=== PATIENT | male | born 1975 | race Two or more races ===

== ENCOUNTER 2016-09-05 07:04 | Day surgery (SDC) | payer MEDICAID ==
[~2016-09-05 07:04] MED LIST: ASPIRIN EC81 MG PO; FERRIC CITRATE210 MG PO; HYDRALAZINE HCL25 M1 PO; ISOSORBIDE MONO30 M4 PO; NICODERM CQ1 EAC2 TD; NORCO 5/325 TAB1 TAB PO; PREDNISONE10 MG PO; TOPROL XL50 M1 PO; [UNRECOGNIZED DRUG - REMARK]
[2016-09-05] MEDS ORDERED: ISONIAZID300 M1 PO (08:01)
[2016-10-02] MEDS ORDERED: SYNTHROID75 MC1 PO (11:52)
[2016-10-02] MEDS ORDERED: TOPROL XL25 M1 PO (11:52)
[2016-10-02] MEDS ORDERED: FERRIC CITRATE210 MG PO (11:53)
[2016-10-02] MEDS ORDERED: VITAMIN D250000 UNI1 PO (11:58)
[2016-10-02] MEDS ORDERED: TYLENOL EXTRA500 M1 PO (11:59)
[2016-10-02] MEDS ORDERED: [UNRECOGNIZED DRUG - REMARK] (11:59)
[2017-01-30] MEDS ORDERED: AURYXIA PO (11:54)
[2017-01-30] MEDS ORDERED: FERRLECIT62.5 MG/5 IV (11:55)
[2017-01-30] MEDS ORDERED: ARANESP200 MCG/1 IV (11:55)
== END 2016-09-05 11:00 ==
LOC: RADSP 07:04 → SHSA 07:06
PROC: B51WYZZ Fluoroscopy of Dialysis Shunt/Fistula using Other Contrast (ICD-10-PCS; principal; 2016-09-05)
PROC: 05743DZ Dilation of Left Innominate Vein with Intraluminal Device, Percutaneous Approach (ICD-10-PCS; 2016-09-05)
DX: T82.858A Stenosis of other vascular prosthetic devices, implants and grafts, initial encounter (principal); I12.0 Hypertensive chronic kidney disease with stage 5 chronic kidney disease or end stage renal disease; N18.6 End stage renal disease; Z79.899 Other long term (current) drug therapy; Z87.891 Personal history of nicotine dependence; Z98.890 Other specified postprocedural states; Z99.2 Dependence on renal dialysis
CPT/HCPCS: C1725; C1769; C1876; C1887; J0690; J2250; J3010; Q9967

== ENCOUNTER 2016-10-07 10:01 | Day surgery (SDC) | payer MEDICAID ==
[~2016-10-07 10:01] MED LIST changes: +ISONIAZID300 M1 PO; +SYNTHROID75 MC1 PO; +TOPROL XL25 M1 PO; +TYLENOL EXTRA500 M1 PO; +VITAMIN D250000 UNI1 PO; +[UNRECOGNIZED DRUG - REMARK]
[2016-10-07 10:55] LABS: BASO % 0.2 % (0-2); EOS % 5.8 % (0-7); EOSINOPHIL ABSOLUTE COUNT 0.3 tho/cmm (0.0-0.7); HCT-HEMATOCRIT 35.6 % (36.0-53.5); HGB-HEMOGLOBIN 11.3 gm/dl (13.5-17.0); IMMATURE GRANULOCYTES ABSOLUTE 0.01 tho/cmm (0-0.03); IMMATURE GRANULOCYTES PERCENT 0.2 % (0-0.3); INR 1.1 INR (0.9-1.1); LYMPH % 22.2 % (20-45); LYMPH ABSOLUTE COUNT 1.3 tho/cmm (0.8-4.5); MCH (MEAN CORPUSCULAR HGB) 21.4 pg (28.0-32.0); MCHC MEAN CORPUSCULAR HGB CONC 31.7 % (32.0-36.0); MCV (MEAN CELL VOLUME) 67.6 fl (82.0-96.0); MONO % 8.8 % (0-12); MONOCYTE ABSOLUTE COUNT 0.5 tho/cmm (0.0-1.2); NEUTROPHIL ABSOLUTE COUNT 3.7 tho/cmm (1.6-8.0); NEUTROPHIL-AUTOMATED 3.7 tho/cmm (1.6-8.0); NEUTROPHILS % 62.8 % (40-80); PLATELET COUNT 122 tho/cmm (150-450); PROTHROMBIN TIME 12.8 SECONDS (9.0-13.6); RED BLOOD COUNT 5.27 mil/cmm (4.40-5.70); RED CELL DISTRIBUTION WIDTH 20.1 % (12.4-16.4); WHITE BLOOD COUNT 5.8 tho/cmm (4.0-10.0)
[2016-10-07 11:12] LABS: ANION GAP 13 mmol/L (0-20); BLOOD UREA NITROGEN 18 mg/dl (6-24); CARBON DIOXIDE-VENOUS 26 mmol/L (22-32); CHLORIDE 104 mmol/l (96-110); CREATININE 3.39 mg/dl (0.60-1.30); GLUCOSE 76 mg/dL (70-110); POTASSIUM 3.8 mmol/L (3.7-5.1); SODIUM 139 mmol/L (135-145); eGFR VALUE FOR BLACK 25 mL/Min
[2017-01-30] MEDS ORDERED: AURYXIA PO (11:54)
[2017-01-30] MEDS ORDERED: ARANESP200 MCG/1 IV (11:55)
[2017-01-30] MEDS ORDERED: FERRLECIT62.5 MG/5 IV (11:55)
== END 2016-10-07 16:20 ==
LOC: SHSB 10:01
PROVIDERS: Radiology Diagnostic Radiology
PROC: 0JPV0XZ Removal of Tunneled Vascular Access Device from Upper Extremity Subcutaneous Tissue and Fascia, Open Approach (ICD-10-PCS; principal; 2016-10-07)
PROC: 0JHD3XZ Insertion of Tunneled Vascular Access Device into Right Upper Arm Subcutaneous Tissue and Fascia, Percutaneous Approach (ICD-10-PCS; 2016-10-07)
DX: I82.C11 Acute embolism and thrombosis of right internal jugular vein (principal); Z79.899 Other long term (current) drug therapy
CPT/HCPCS: C1750; C1769; J0690; J1644; J2250; J3010; J7030